=== PATIENT | male | born 1960 | race Caucasian/White ===

== ENCOUNTER 2018-03-30 03:18 | Emergency (ER) | payer BC ==
[~2018-03-30] VITALS: Ht 170.2 cm; Wt 90.0 kg
[~2018-03-30 03:18] MED LIST: BENTYL20 MG PO; DEXILANT60 MG PO; ESCITALOPRAM OX20 MG PO; LEVOTHYROXINE100 MCG PO; PANTOPRAZOLE SO40 MG PO; PROBIOTIC1 EAC1 PO; PROTONIX40 MG PO; ZANTAC150 MG PO
[2018-03-30 03:40] LABS: HEMATOCRIT 42.5 % (38.0-50.0); HEMOGLOBIN 14.5 G/DL (12.5-16.6); MCHC 34.1 G/DL (30.0-36.0); MCV 90.8 FL (86-99); PLATELET COUNT 193 K/uL (156-360); RBC DIS.WIDTH-SD 42.6 % (39-53); RED BLOOD COUNT 4.68 M/uL (4.00-5.50); WHITE BLOOD COUNT 8.3 K/uL (4.1-10.2)
[2018-03-30 03:52] LABS: CHLORIDE 110 mEq/L (99-109); GLUCOSE 104 mg/dL (70-99); POTASSIUM 4.2 mEq/L (3.7-5.4); SODIUM 142 mEq/L (136-147)
[2018-03-30 03:56] LABS: CREATININE 0.8 mg/dL (0.6-1.3); GFR ESTIMATE (CALCULATED) > 59 mL/min/ (58.99-99999)
[2018-03-30 03:57] LABS: UREA NITROGEN (BUN) 23 mg/dL (9-23)
[2018-03-30 04:01] LABS: TROP-I INTERPRETATION NEGATIVE; TROPONIN-I < 0.01 ng/mL (0.0-0.30)
[2018-03-30 04:06] LABS: ALBUMIN 4.1 g/dL (3.2-4.8)
[2018-03-30 04:08] LABS: TOTAL PROTEIN 6.7 g/dL (6.4-8.3)
[2018-03-30 04:10] LABS: TOTAL BILIRUBIN 0.4 mg/dL (0.0-1.0)
[2018-03-30 04:11] LABS: ALKALINE PHOSPHATASE 67 IU/L (3-129)
[2018-03-30 04:14] LABS: ALT (GPT) 20 IU/L (3-49); AST (GOT) 22 IU/L (2-34); DIRECT BILIRUBIN 0.2 mg/dL (0.0-0.3)
[2018-03-30 04:15] LABS: LIPASE 26 U/L (1.0-51.0)
[2018-03-30 05:33] VITALS: BP 101/55
[2018-03-30 07:58] LABS: THYROTROPIN (TSH) 2.8 MIU/L (0.4-5.5)
== END 2018-03-30 05:34 | disposition home or self-care (01) ==
LOC: EME 03:18
PROVIDERS: Physician Assistant
DX: R10.11 Right upper quadrant pain (principal); R07.89 Other chest pain; R00.1 Bradycardia, unspecified; E03.9 Hypothyroidism, unspecified; G47.33 Obstructive sleep apnea (adult) (pediatric); F41.9 Anxiety disorder, unspecified; Z90.49 Acquired absence of other specified parts of digestive tract
CPT/HCPCS: 71046; 80048; 80076; 83690; 84443; 84484; 85027; 85379; 93005; 99281; 99284; J1885